=== PATIENT | male | born 1965 | race Caucasian/White ===

== ENCOUNTER 2017-11-30 06:41 | Emergency (ER) | payer OTHER ==
--- NOTE | 2017-11-30 07:17 | ERPHSYRPT ---
- History of Present Illness Time Seen by Provider: 11/30/17 07:07 Source: patient Exam Limitations: no limitations Patient Subjective Stated Complaint: headache past two days, sudden pop and warmth that spread over left side of face. Triage Nursing Assessment: pt is alert and oriented x3. pt is ambulatory. no facial drooping noted. 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 PERRLA. no balance or coordination deficits noted. Physician History: Pt is never smoker, with History of HTN, DM woke up 2 nights ago with sudden left sided headaches. It has resolved this morning, when he was driving here. He noticed left facial numbness and "warmth". denies visual changes, difficulty speaking, nausea, vomiting, focal weakness, difficulty walking, chest pain, other complaints. He states, his brother has a History of strokes, it has been frequent in his family. Pt states, his brother had bleeding stroke. Timing/Duration: day(s) (2), sudden Quality: throbbing Head Pain Location: parietal (left) Severity of Pain-Max: severe Severity of Pain-Current: mild Recent Head Trauma: no recent headache/trauma Modifying Factors: Improves With: other (none) Associated Symptoms: other (left facial numbness, "warmth".) Previous symptoms: no prior history Allergies/Adverse Reactions: dulaglutide [From [facility]] Adverse Reaction (Verified 11/30/17 06:57) Home Medications: Allopurinol 100 mg [Zyloprim 100 mg] 100 mg PO DAILY 11/30/17 [History] Fenofibric Acid (Choline) [Fenofibric Acid] 135 mg PO HS 11/30/17 [History] Furosemide 20 mg [Lasix 20 mg] 20 mg PO DAILY 11/30/17 [History] Insulin Glargine,Hum.rec.anlog [Basaglar Kwikpen U-100] 100 units SQ DAILY 11/30 [History] Levothyroxine Sodium 50 Mcg [Synthroid 50 Mcg] 50 mcg PO DAILY 11/30/17 [ History] Lisinopril 10 mg [Zestril 10 MG] 10 mg PO DAILY 11/30/17 [History] Metformin HCl 500 mg [Glucophage 500 MG] 1,000 mg PO DAILY 11/30/17 [ History] Multivitamin [Daily Multivitamin] 1 tab PO DAILY 11/30/17 [History] [place]-3 Fatty Acids/Fish Oil [Fish Oil 1,000 mg Capsule] 1 tab PO DAILY [History] Pantoprazole 20 mg [Protonix 20MG Tablet] 20 mg PO DAILY 11/30/17 [History ] Simvastatin 40 mg [Zocor 40 mg] 40 mg PO DAILY 11/30/17 [History] Hx Tetanus, Diphtheria Vaccination/Date Given: Yes Hx Influenza Vaccination/Date Given: Yes Hx Pneumococcal Vaccination/Date Given: No Immunizations Up to Date: Yes - Review of Systems Constitutional: No Symptoms Neurological: Headache, Parasthesia All Other Systems: Reviewed and Negative - Past Medical History Pertinent Past Medical History: Yes Neurological History: No Pertinent History ENT History: No Pertinent History Cardiac History: Hypertension Respiratory History: No Pertinent History Endocrine Medical History: Diabetes Type II Musculoskeletal History: No Pertinent History GI Medical History: GERD History: No Pertinent History Psycho-Social History: Depression Male Reproductive Disorders: No Pertinent History - Past Surgical History Past Surgical History: Yes Neuro Surgical History: No Pertinent History Cardiac: No Pertinent History Respiratory: No Pertinent History Gastrointestinal: No Pertinent History Genitourinary: No Pertinent History Musculoskeletal: Other Male Surgical History: No Pertinent History Other Surgical History: left leg surgery after accident. rotator cuff surgery. - Social History Smoking Status: Never smoker Exposure to second hand smoke: No Drug Use: none - Nursing Vital Signs Nursing Vital Signs: Initial Vital Signs Temperature 97.5 F 11/30/17 06:43 Pulse Rate 84 11/30/17 06:43 Respiratory Rate 16 11/30/17 06:43 Blood Pressure 144/91 11/30/17 06:43 O2 Sat by Pulse Oximetry 98 11/30/17 06:43 Pain Scale Pain Intensity 0 - Physical Exam General Appearance: no apparent distress Eye Exam: PERRL/EOMI, eyes nml inspection Ears, Nose, Throat Exam: normal ENT inspection, TMs normal, pharynx normal Neck Exam: normal inspection, non-tender, supple, full range of motion, No carotid bruit, No JVD Respiratory Exam: normal breath sounds, lungs clear, airway intact, No chest tenderness Cardiovascular Exam: regular rate/rhythm, normal heart sounds, normal peripheral pulses, No murmur Gastrointestinal/Abdominal Exam: soft, normal bowel sounds, No tenderness Back Exam: normal inspection, No CVA tenderness Extremity Exam: normal inspection, normal range of motion Mental Status 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: alert, 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, 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 Exam: normal hearing, normal speech, abnormal gag reflex, No facial droop Coordination/Gait Exam: normal gait Motor/Sensory Exam: no motor deficit, no sensory deficit, no pronator drift DTR Exam: bicep (R): 3+, bicep (L): 3+, knee (R): 3+, knee (L): 3+ Skin Exam: normal color, warm, dry, No rash Lymphatic Exam: No adenopathy SpO2 Interpretation: normal SpO2: 98 Oxygen Delivery: Room Air - Course Nursing assessment & vital signs reviewed: Yes - CT Exams Head CT Interpretation: Negative, Tele-radiologist Report Ordered Tests: Active Orders 24 hr Category Date Time Status Medical Geneticist STAT Care 11/30/17 07:08 Active IV Insertion STAT Care 11/30/17 07:07 Active Oxygen-ED Only NASAL CANNULA 2 lpm Care 11/30/17 07:07 Active HEAD WITHOUT CONTRAST [CT] Stat Exams 11/30/17 07:08 Taken CBC W DIFF Stat Lab 11/30/17 07:10 Completed CMP Stat Lab 11/30/17 07:10 Completed CULTURE,URINE Stat Lab 11/30/17 07:45 Received Erythrocyte Sedimentation Rate Stat Lab 11/30/17 07:10 Completed PROTIME WITH INR Stat Lab 11/30/17 07:10 Completed PTT Stat Lab 11/30/17 07:10 Completed UA W/ MICROSCOPIC Stat Lab 11/30/17 07:45 Completed Urine Triage Profile Stat Lab 11/30/17 07:45 Completed Lab/Rad Data: Laboratory Result Diagrams 11/30/17 07:10 11/30/17 07:10 Laboratory Results 11/30/17 11/30/17 11/30/17 Range/Units 07:45 07:45 07:10 WBC (4.0-10.5) K/mm3 RBC (4.1-5.6) M/mm3 Hgb (12.5-18.0) gm/dl Hct (42-50) % MCV (78-100) fl MCH (26-32) pg MCHC (32-36) g/dl RDW (11.5-14.0) % Plt Count (150-450) K/mm3 MPV (6-9.5) fl Gran % (36.0-66.0) % Eos # (Auto) (0-0.5) Absolute Lymphs (auto) (1.0-4.6) Absolute Monos (auto) (0.0-1.3) Lymphocytes % (24.0-44.0) % Monocytes % (0.0-12.0) % Eosinophils % (0.00-5.0) % Basophils % (0.0-0.4) % Absolute Granulocytes (1.4-6.9) Basophils # (0-0.4) ESR (0-15) mm/hr PT 11.7 (8.83-12.87) SECONDS INR 1.05 (0.8-3.0) APTT 34.7 (24.1-36.1) SECONDS Sodium (137-145) mmol/L Potassium (3.5-5.1) mmol/L Chloride (98-107) mmol/L Carbon Dioxide (22-30) mmol/L Anion Gap (5-15) MEQ/L BUN (9-20) mg/dL Creatinine (0.66-1.25) mg/dL Estimated GFR ML/MIN Glucose (74-106) mg/dL Calcium (8.4-10.2) mg/dL Total Bilirubin (0.2-1.3) mg/dL AST (17-59) U/L ALT (0-50) U/L Alkaline Phosphatase (38-126) U/L Serum Total Protein (6.3-8.2) g/dL Albumin (3.5-5.0) g/dL Ur Collection Type VOID Urine Color YELLOW (YELLOW) Urine Appearance HAZY (CLEAR) Urine pH 5.0 (5-6) Ur Specific [place] 1.010 (1.005-1.025) Urine Protein NEGATIVE (Negative) Urine Ketones NEGATIVE (NEGATIVE) Urine Blood NEGATIVE (0-5) [place]/ul Urine Nitrite POSITIVE (NEGATIVE) Urine Bilirubin NEGATIVE (NEGATIVE) Urine Urobilinogen NORMAL (0-1) mg/dL Ur Leukocyte Esterase 2+ (NEGATIVE) Urine Microscopic RBC 2-5 (0-2) /HPF Urine Microscopic WBC 15-25 (0-5) /HPF Ur Epithelial Cells RARE (FEW) /HPF Urine Bacteria MANY (NEGATIVE) /HPF Urine Culture Reflexed YES (NO) Urine Glucose NEGATIVE (NEGATIVE) mg/dL Urine Opiates Level NEGATIVE (NEGATIVE) Ur Methadone NEGATIVE (NEGATIVE) Urine Barbiturates NEGATIVE (NEGATIVE) Ur Phencyclidine (PCP) NEGATIVE (NEGATIVE) Urine Amphetamine NEGATIVE (NEGATIVE) U Benzodiazepine Level NEGATIVE (NEGATIVE) Urine Cocaine NEGATIVE (NEGATIVE) Urine Marijuana (THC) NEGATIVE (NEGATIVE) Specimen Received 3 11/30/17 11/30/17 Range/Units 07:10 07:10 WBC 8.3 (4.0-10.5) K/mm3 RBC 4.75 (4.1-5.6) M/mm3 Hgb 13.5 (12.5-18.0) gm/dl Hct 42.4 (42-50) % MCV 89.3 (78-100) fl MCH 28.4 (26-32) pg MCHC 31.8 L (32-36) g/dl RDW 13.4 (11.5-14.0) % Plt Count 245 (150-450) K/mm3 MPV 9.8 H (6-9.5) fl Gran % 60.6 (36.0-66.0) % Eos # (Auto) 0.50 (0-0.5) Absolute Lymphs (auto) 2.06 (1.0-4.6) Absolute Monos (auto) 0.67 (0.0-1.3) Lymphocytes % 24.9 (24.0-44.0) % Monocytes % 8.1 (0.0-12.0) % Eosinophils % 6.0 H (0.00-5.0) % Basophils % 0.4 (0.0-0.4) % Absolute Granulocytes 5.01 (1.4-6.9) Basophils # 0.03 (0-0.4) ESR 17 H (0-15) mm/hr PT (8.83-12.87) SECONDS INR (0.8-3.0) APTT (24.1-36.1) SECONDS Sodium 142 (137-145) mmol/L Potassium 4.8 (3.5-5.1) mmol/L Chloride 105 (98-107) mmol/L Carbon Dioxide 26 (22-30) mmol/L Anion Gap 16.0 H (5-15) MEQ/L BUN 28 H (9-20) mg/dL Creatinine 1.15 (0.66-1.25) mg/dL Estimated GFR > 60.0 ML/MIN Glucose 119 H (74-106) mg/dL Calcium 10.2 (8.4-10.2) mg/dL Total Bilirubin 0.20 (0.2-1.3) mg/dL AST 17 (17-59) U/L ALT 16 (0-50) U/L Alkaline Phosphatase 45 (38-126) U/L Serum Total Protein 7.7 (6.3-8.2) g/dL Albumin 4.6 (3.5-5.0) g/dL Ur Collection Type Urine Color (YELLOW) Urine Appearance (CLEAR) Urine pH (5-6) Ur Specific [place] (1.005-1.025) Urine Protein (Negative) Urine Ketones (NEGATIVE) Urine Blood (0-5) [place]/ul Urine Nitrite (NEGATIVE) Urine Bilirubin (NEGATIVE) Urine Urobilinogen (0-1) mg/dL Ur Leukocyte Esterase (NEGATIVE) Urine Microscopic RBC (0-2) /HPF Urine Microscopic WBC (0-5) /HPF Ur Epithelial Cells (FEW) /HPF Urine Bacteria (NEGATIVE) /HPF Urine Culture Reflexed (NO) Urine Glucose (NEGATIVE) mg/dL Urine Opiates Level (NEGATIVE) Ur Methadone (NEGATIVE) Urine Barbiturates (NEGATIVE) Ur Phencyclidine (PCP) (NEGATIVE) Urine Amphetamine (NEGATIVE) U Benzodiazepine Level (NEGATIVE) Urine Cocaine (NEGATIVE) Urine Marijuana (THC) (NEGATIVE) Specimen Received - Progress Progress: improved Air Movement: good Progress Note: 11/30/17 08:26 Pt had few short episodes of not severe headaches, with the same pattern, became pain free eventually. He is alert and oriented x4, mentally fully competent. I explained the results, and the need to perform a spinal tap to be able to completely rule out minor bleeding from a brain aneurism, with all possible risks and benefits of this test. He and his brother understood, but decided to refuse the spinal tap, he also refused to be admitted for observation. He is from [place], he wants to go home and follow up with his physician next week. He understood all possible consequences of his decision, including but not limited to , and serious neurological deficits. He was given prescription for Fioricet 1 tab PO Q6h PRN for headaches # 15, and Keflex 500mg QID x 1 week. Blood Culture(s) Obtained: No Antibiotics given: Yes - Departure Time of Disposition: 08:30 Departure Disposition: AMA Clinical Impression: Headache Qualifiers: Headache type: unspecified Headache chronicity pattern: acute headache Intractability: not intractable Qualified Code(s): R51 - Headache UTI (urinary tract infection) Qualifiers: Urinary tract infection type: site unspecified Hematuria presence: without hematuria Qualified Code(s): N39.0 - Urinary tract infection, site not specified Condition: Stable Critical Care Time: No Referrals: BELLE RAGLAND MD [Primary Care Provider] - Additional Instructions: Rest x 2-3 days, drink plenty of fluids, return if severe headaches, vomiting, lethargy, visual changes, fever> 102 F, follow up with your physician in 2-3 days!
[2017-11-30 07:21] LABS: BASOPHIL % 0.4 % (0.0-0.4); Basophil (Absolute #) 0.03 (0-0.4); Granulocyte Absolute (ANC) 5.01 (1.4-6.9); Granulocytes % 60.6 % (36.0-66.0); Hematocrit 42.4 % (42-50); Hemoglobin 13.5 gm/dl (12.5-18.0); Lymphocyte (Absolute #) 2.06 (1.0-4.6); Lymphocytes % 24.9 % (24.0-44.0); Mean Cell Volume 89.3 fl (78-100); Mean Corpuscular Hemoglobin 28.4 pg (26-32); Mean Corpuscular Hgb Concent. 31.8 g/dl (32-36); Mean Platelet Volume 9.8 fl (6-9.5); Monocyte (Absolute #) 0.67 (0.0-1.3); Monocytes % 8.1 % (0.0-12.0); Platelet Count 245 K/mm3 (150-450); Red Blood Count 4.75 M/mm3 (4.1-5.6); Red Cell Distribution Width 13.4 % (11.5-14.0); White Blood Count 8.3 K/mm3 (4.0-10.5)
[2017-11-30 07:34] LABS: INR 1.05 (0.8-3.0)
[2017-11-30 07:37] LABS: PTT 34.7 SECONDS (24.1-36.1)
[2017-11-30 07:42] LABS: ALBUMIN 4.6 g/dL (3.5-5.0); ALKALINE PHOSPHATASE 45 U/L (38-126); BLOOD UREA NITROGEN 28 mg/dL (9-20); CHLORIDE 105 mmol/L (98-107); Calcium 10.2 mg/dL (8.4-10.2); Carbon Dioxide 26 mmol/L (22-30); Creatinine 1 1.15 mg/dL (0.66-1.25); Glucose 119 mg/dL (74-106); Potassium 4.8 mmol/L (3.5-5.1); SGOT/AST 17 U/L (17-59); SGPT/ALT 16 U/L (0-50); SODIUM 142 mmol/L (137-145); Total Protein 7.7 g/dL (6.3-8.2)
[2017-11-30 07:45] LABS: Erythrocyte Sedimentation Rate 17 mm/hr (0-15)
[2017-11-30 08:00] LABS: Appearance HAZY (CLEAR); Bilirubin NEGATIVE (NEGATIVE); Blood NEGATIVE Ery/ul (0-5); Glucose NEGATIVE (NEGATIVE); Ketones NEGATIVE (NEGATIVE); Leukocyte Esterase 2+ (NEGATIVE); Nitrite POSITIVE (NEGATIVE); Protein,Urine Dip NEGATIVE (Negative); Urobilinogen NORMAL mg/dL (0-1)
[2017-11-30 08:04] LABS: Epithelial Cells RARE /HPF (FEW); WBC 15-25 /HPF (0-5)
[2017-11-30 08:05] LABS: Bacteria MANY /HPF (NEGATIVE)
[2017-11-30 08:21] LABS: Amphetamine,Urine NEGATIVE (NEGATIVE); Barbiturate,Urine NEGATIVE (NEGATIVE); Benzodiazepine,Urine NEGATIVE (NEGATIVE); Cocaine,Urine NEGATIVE (NEGATIVE); Methadone,Urine NEGATIVE (NEGATIVE); Opiate,Urine NEGATIVE (NEGATIVE); PCP,Urine NEGATIVE (NEGATIVE); THC,Urine NEGATIVE (NEGATIVE)
[2017-11-30] MEDS ORDERED: KEFLEX 500 MG PO ONE (08:25)
[2017-11-30 08:30] VITALS: O2SAT 98
[2017-11-30] MEDS ORDERED: KEFLEX 500 MG ONE (08:32)
[2017-11-30 08:43] VITALS: BP 120/78; PULSE 83
--- NOTE | 2017-11-30 12:33 | XRAY ---
Indication: Headache and tingling. Multiple contiguous axial images obtained through the head without contrast. Comparison: None Normal appearing brain parenchyma, ventricles, and bony calvarium. Visualized paranasal sinuses and mastoid air cells are clear. Impression: Normal CT head without contrast exam. Comment: Preliminary interpretation was made by [facility]. No discrepancy. CTDI 66.12
== END 2017-11-30 08:51 | disposition home or self-care (01) ==
LOC: ED 06:41
DX: R51 Headache (principal); N39.0 Urinary tract infection, site not specified; Z79.899 Other long term (current) drug therapy; Z79.84 Long term (current) use of oral hypoglycemic drugs; I10 Essential (primary) hypertension; E11.9 Type 2 diabetes mellitus without complications
CPT/HCPCS: 36000; 36415; 70450; 80053; 80307; 81000; 85025; 85610; 85652; 85730; 87077; 87086; 87186; 93041; 99283; 99284; A9270-GY